=== PATIENT | female | born 1995 | race Caucasian/White ===

== ENCOUNTER 2017-03-27 08:37 | Emergency (ER) | payer BC ==
[~2017-03-27] VITALS: Ht 167.6 cm; Wt 64.9 kg
[2017-03-27 08:38] VITALS: TEMP 36.5; Ht 167.6 cm; Wt 64.9 kg
[2017-03-27] MEDS ORDERED: IUD'IUD (08:52)
[2017-03-27] MEDS ORDERED: SODIUM CHLORIDE 0.9% 1000ML 1,000 ML IV STA (09:30)
[2017-03-27] MEDS ORDERED: ONDANSETRON INJ 2 MG/ML 2 ML VIAL IV STA (09:30)
[2017-03-27] MEDS ORDERED: OPTIRAY 320 IV PRN (09:45)
--- NOTE | 2017-03-27 09:45 | EMERGENCY ROOM VISIT NOTE ---
History First contact with patient: 09:06 (Alee Arellano M.D.) First contact with patient: 09:05 (Vahid Madera D.O.) Chief Complaint: ABDOMINAL PAIN Stated Complaint: PAIN IN RIGHT LOWER ABD Nursing Triage Summary: Having some pretty sharp pains in my lower right abdomen." Pain began yesterday. Appetite is good. (Alee Arellano M.D.) History of Present Illness The patient is a 21 year old female who presents to the Emergency Room with complaints of constant abdominal pain in RLQ that started yesterday, slept poorly last night because of pain. Denies triggers like food or trauma. Pain is constant, 5/10, exacerbated by motion getting up and down. Denies nausea, vomiting, fever, chills, diarrhea, dysuria, melena, hematuria, vaginal bleeding. Pt states she has hypopigmented lesions left over from hair laser therapy on her forearms - has been seen by Derm for this. LMP was Mar 02. Periods are regular. S/p IUD copper insertion Sep 2016. Reports having unprotected sex several times since last period. Denies h/o STI's. sig for father has IBS. SH pt is a student, denies T/E/D. (Alee Arellano M.D.) This is a 21-year-old female who presents to the ED with a chief complaint of right-sided abdominal pain. The patient's symptoms started yesterday. She reports that it is a constant pain. It seems worse with movement. She denies any fevers, nausea, vomiting or diarrhea. Denies any vaginal discharge. She is on control. Last menstrual period was about 3 weeks ago. Patient has no other complaints. No back pain or urinary symptoms. (Vahid Madera D.O.) Review of Systems ROS unremarkable as above. (Alee Arellano M.D.) As above otherwise negative for 10 systems (Vahid Madera D.O.) Past Medical/Surgical History No past medical history (Vahid Madera D.O.) Family History No significant family history. (Vahid Madera D.O.) Social History Smoking Status: Never Smoker Drug Use: none Marital Status: single Housing Status: lives alone Occupation Status: student (Alee Arellano M.D.) Smoking Status: Never Smoker Smokeless Tobacco Use: No Alcohol Use: occasionally Marital Status: single Housing Status: lives with roommate (Vahid Madera D.O.) Current/Historical Medications Miscellaneous Medications Iud's (Paragard Intrauterine Web Press Roll Tender) Physical Exam Vital Signs Date Time Temp Pulse Resp B/P (MAP) Pulse Ox O2 Delivery O2 Flow Rate FiO2 03/27/17 10:34 115/73 03/27/17 08:38 36.5 84 20 107/65 95 Room Air (Vahid Madera D.O.) Physical Exam as below General Appearance: WD/WN, no apparent distress Eyes: normal inspection, EOMI ENT: hearing grossly normal Respiratory/Chest: lungs clear, normal breath sounds, no respiratory distress Cardiovascular: regular rate, rhythm Abdomen / GI: soft, + pertinent finding (tender in RLQ. Neg psoas sign. Neg russell's. Neg for CVA tenderness.) Extremities: + pertinent finding (numerous hypopigmented elliptical flat lesions on forearms) (Alee Arellano M.D.) CONSTITUTIONAL/VITAL SIGNS: Reviewed / noted above. GENERAL: Non-toxic in appearance. INTEGUMENTARY: Warm, dry, and [place]. HEAD: Normocephalic. EYES: without scleral icterus or trauma. ENT/OROPHARYNX: clear and moist. LYMPHADENOPATHY/NECK: Is supple without lymphadenopathy or meningismus. RESPIRATORY: Lungs clear and equal. CARDIOVASCULAR: Regular rate and rhythm. GI/ABDOMEN: Soft and tender in the right lower abdomen. No organomegaly or pulsatile mass. No rebound or guarding. Normal bowel sounds. EXTREMITIES: Warm and well perfused. BACK: No CVA tenderness. NEUROLOGICAL: Intact without focal deficits. PSYCHIATRIC: normal affect. MUSCULOSKELETAL: Normally developed with good muscle tone. TRIAGE NURSING DOCUMENTATION REVIEWED. (Vahid Madera D.O.) Medical Decision & Procedures ER Provider Diagnostic Interpretation: Pelvic ultrasound did not show acute pathology. CT scan of the abdomen and pelvis was negative for acute pathology. (Vahid Madera D.O.) Laboratory Results 03/27/17 09:00 Red Blood Count 4.15, Mean Corpuscular Volume 94.9, Mean Corpuscular Hemoglobin 32.0, Mean Corpuscular Hemoglobin Concent 33.8, Mean Platelet Volume 10.3, Neutrophils (%) (Auto) 59.5, Lymphocytes (%) (Auto) 32.0, Monocytes (%) (Auto) 6.9, Eosinophils (%) (Auto) 0.8, Basophils (%) (Auto) 0.3, Neutrophils # (Auto) 3.86, Lymphocytes # (Auto) 2.08, Monocytes # (Auto) 0.45, Eosinophils # (Auto) 0.05, Basophils # (Auto) 0.02 03/27/17 09:00 Test 03/27/17 08:45 03/27/17 09:00 Urine Color YELLOW Urine Appearance CLOUDY (CLEAR) Urine pH 5.0 (4.5-7.5) Urine Specific [place] 1.026 (1.000-1.030) Urine Protein NEG (NEG) Urine Glucose (UA) NEG (NEG) Urine Ketones NEG (NEG) Urine Occult Blood TRACE (NEG) Urine Nitrite NEG (NEG) Urine Bilirubin NEG (NEG) Urine Urobilinogen NEG (NEG) Urine Leukocyte Esterase NEG (NEG) Urine WBC (Auto) 10-30 /hpf (0-5) Urine RBC (Auto) 0-4 /hpf (0-4) Urine Hyaline Casts (Auto) 5-10 /lpf (0-5) Urine Epithelial Cells (Auto) >30 /lpf (0-5) Urine Bacteria (Auto) 2+ (NEG) Urine Test NEG (NEG) White Blood Count 6.49 K/uL (4.8-10.8) Red Blood Count 4.15 M/uL (4.2-5.4) Hemoglobin 13.3 g/dL (12.0-16.0) Hematocrit 39.4 % (37-47) Mean Corpuscular Volume 94.9 fL (80-100) Mean Corpuscular Hemoglobin 32.0 pg (25-34) Mean Corpuscular Hemoglobin Concent 33.8 g/dl (32-36) Platelet Count 258 K/uL (130-400) Mean Platelet Volume 10.3 fL (7.4-10.4) Neutrophils (%) (Auto) 59.5 % Lymphocytes (%) (Auto) 32.0 % Monocytes (%) (Auto) 6.9 % Eosinophils (%) (Auto) 0.8 % Basophils (%) (Auto) 0.3 % Neutrophils # (Auto) 3.86 K/uL (1.4-6.5) Lymphocytes # (Auto) 2.08 K/uL (1.2-3.4) Monocytes # (Auto) 0.45 K/uL (0.11-0.59) Eosinophils # (Auto) 0.05 K/uL (0-0.5) Basophils # (Auto) 0.02 K/uL (0-0.2) RDW Standard Deviation 43.0 fL (36.4-46.3) RDW Coefficient of Variation 12.4 % (11.5-14.5) Immature Granulocyte % (Auto) 0.5 % Immature Granulocyte # (Auto) 0.03 K/uL (0.00-0.02) Anion Gap 9.0 mmol/L (3-11) Est Creatinine Clear Calc Drug Dose 125.3 ml/min Estimated GFR () 146.7 Estimated GFR (Non- 126.5 BUN/Creatinine Ratio 14.3 (10-20) Calcium Level 9.5 mg/dl (8.5-10.1) Total Bilirubin 0.3 mg/dl (0.2-1) Direct Bilirubin < 0.1 mg/dl (0-0.2) Aspartate Amino Transf (AST/SGOT) 16 U/L (15-37) Alanine Aminotransferase (ALT/SGPT) 18 U/L (12-78) Alkaline Phosphatase 69 U/L (45-117) Total Protein 7.6 gm/dl (6.4-8.2) Albumin 3.9 gm/dl (3.4-5.0) Lipase 144 U/L (73-393) (Vahid Madera, D.O.) Medications Administered Medications (Trade) Dose Ordered Sig/Ekta Route Start Time Stop Time Status Last Admin Dose Admin Sodium Chloride 1,000 ml @ 999 mls/hr Q1H1M STAT IV 03/27/17 09:30 03/27/17 10:30 DC 03/27/17 09:41 999 MLS/HR Ondansetron HCl (Zofran Inj) 4 mg NOW STAT IV 03/27/17 09:30 03/27/17 09:31 DC 03/27/17 09:42 4 MG (Vahid Madera, D.O.) ED Course 0906 Signed up 0910 Assessed pt 0926 Note writing. 0930 presented to attending [address] scan abd and pelvic US 1015 reviewed labs (Alee Arellano M.D.) The patient was treated with IV fluids and IV Zofran. She did not require pain medication. (Vahid Madera D.O.) Medical Decision Differential considered: pancreatitis, hepatitis, acute cholecystitis, AAA, UTI , pyelonephritis, kidney stones, appendicitis, diverticulitis, shingles, bowel obstruction, mesenteric ischemia, intussusception,hernia. This is a 21-year-old female who presents to the ED with a right lower quadrant abdominal pain as discussed above. She had tenderness in the right lower quadrant on exam. An ultrasound of the pelvis as well as a CT scan of the abdomen and pelvis did not show acute process. Blood work and urinalysis was unremarkable. Urine seems consistent with contamination. There is no complaint of urinary symptoms. test was negative. She was told the results and felt to be stable for discharge. (Vahid Madera D.O.) Blood Pressure Screening Patient's blood pressure: Normal blood pressure (Alee Arellano M.D.) Impression Primary Impression: Right lower quadrant abdominal pain Departure Information Dispostion Home / Self-Care Referrals No Doctor, Assigned (PCP) Patient Instructions Abdominal Pain - [facility], [facility] Additional Instructions Follow-up with your doctor for further care and evaluation in 1-2 days. Return to the emergency department for worsening or new symptoms or any concerns. You have been examined and treated today on an emergency basis only. This is not a substitute for, or an effort to provide, complete comprehensive medical care. It is impossible to recognize and treat all injuries or illnesses in a single emergency department visit. It is therefore important that you follow up closely with your doctor. Call as soon as possible for an appointment.
[2017-03-27 09:53] LABS: BASO % 0.3 %; BASO ABS # 0.02 K/uL (0-0.2); EOS % 0.8 %; EOS ABS # 0.05 K/uL (0-0.5); HEMATOCRIT 39.4 % (37-47); HEMOGLOBIN 13.3 g/dL (12.0-16.0); IG# 0.03 K/uL (0.00-0.02); LYMPH ABS # 2.08 K/uL (1.2-3.4); MEAN CELL VOLUME 94.9 fL (80-100); MEAN CORPUSCULAR HGB CONC 33.8 g/dl (32-36); MEAN PLATELET VOLUME 10.3 fL (7.4-10.4); MONO % 6.9 %; MONO ABS # 0.45 K/uL (0.11-0.59); NEUT % 59.5 %; NEUT ABS # 3.86 K/uL (1.4-6.5); PLATELET COUNT 258 K/uL (130-400); RED CELL DISTRIBUTION WIDTH CV 12.4 % (11.5-14.5); WHITE BLOOD COUNT 6.49 K/uL (4.8-10.8)
[2017-03-27 10:00] LABS: ALBUMIN 3.9 gm/dl (3.4-5.0); ALT/SGPT 18 U/L (12-78); BLOOD UREA NITROGEN 10 mg/dl (7-18); CALCIUM 9.5 mg/dl (8.5-10.1); CARBON DIOXIDE 25 mmol/L (21-32); CREATININE 0.67 mg/dl (0.60-1.20); GLUCOSE 75 mg/dl (70-99); LIPASE 144 U/L (73-393); POTASSIUM 3.6 mmol/L (3.5-5.1); SODIUM 138 mmol/L (136-145)
[2017-03-27 10:03] LABS: ALKALINE PHOSPHATASE 69 U/L (45-117); AST/SGOT 16 U/L (15-37); TOTAL PROTEIN 7.6 gm/dl (6.4-8.2)
--- NOTE | 2017-03-27 10:46 | DIAGNOSTIC IMAGING REPORT ---
ULTRASOUND OF THE PELVIS CLINICAL HISTORY: Right pelvic pain. COMPARISON STUDY: No priors. TECHNIQUE: Real-time, grayscale, and color flow sonography of the pelvis is performed both transabdominally and endovaginally. Images are reviewed in the transverse and longitudinal planes. FINDINGS: Uterus: The uterus is normal in size and echotexture, measuring 7.5 x 4.6 x 5.8 cm. An intrauterine device is in place. Trace fluid is noted in the endocervical canal. Endometrium: The endometrium is normal in appearance, and the endometrial stripe is normal in thickness measuring up to 0.9 cm. Ovaries: The ovaries are normal in size and morphology. The right ovary measures 2.6 x 2.0 x 3.3 cm and the left ovary measures 2.7 x 1.2 x 1.5 cm. Numerous small follicles are present bilaterally. Normal Doppler waveforms are shown within both ovaries. Pelvis: There is a small volume of free fluid in the cul-de-sac. No concerning adnexal lesion is seen. IMPRESSION: 1. No acute sonographic abnormality is identified in the pelvis. 2. An intrauterine device is in place. 3. There is a small volume of free fluid in the cul-de-sac, likely within physiologic limits. Electronically signed by: Gio Brannon M.D. 03/27/2017 10:45 AM Dictated Date/Time: 03/27/2017 10:43 AM
--- NOTE | 2017-03-27 11:58 | DIAGNOSTIC IMAGING REPORT ---
CT OF THE ABDOMEN AND PELVIS WITH CONTRAST CLINICAL HISTORY: Right lower quadrant abdominal pain. COMPARISON STUDY: Pelvic ultrasound performed earlier today. TECHNIQUE: Following IV administration of 93 mL of [id number], axial images of the abdomen and pelvis were obtained from the lung bases to the proximal femurs. Images were reviewed in the axial, sagittal, and coronal planes. IV contrast was administered without complication. A dose lowering technique was utilized adhering to the principles of ALARA. Oral contrast was administered. CT DOSE: 382.12 mGy.cm FINDINGS: Lung bases are clear. No pneumatosis, free air or portal venous gas is present. The liver, spleen, adrenal glands, kidneys and pancreas are normal. There is no biliary or pancreatic ductal dilatation. There is no peripancreatic or pericholecystic infiltration. No hydronephrosis is present. Major vasculature of the abdomen and pelvis is patent. The caliber and wall thickness of small and large bowel are normal. The appendix is normal. Intrauterine device is in place. The ovaries are not enlarged. Trace free pelvic fluid is likely physiologic. There is no lymphadenopathy. There are no suspicious osseous lesions. IMPRESSION: 1. No acute process within the abdomen or pelvis. Normal appendix. 2. Intrauterine device in place. 3. Trace free pelvic fluid which is likely physiologic. Electronically signed by: Brandon Perez M.D. 03/27/2017 11:57 AM Dictated Date/Time: 03/27/2017 11:53 AM
[2017-03-27 12:45] VITALS: BP 104/76; PULSE 75; O2SAT 98
== END 2017-03-27 12:49 | disposition home or self-care (01) ==
LOC: C.EDB 08:38 → C.EDA 12:49
DX: R10.31 Right lower quadrant pain (principal); Z97.5 Presence of (intrauterine) contraceptive device; Z83.79 Family history of other diseases of the digestive system